=== PATIENT | male | born 1960 | race Caucasian/White ===

== ENCOUNTER 2019-02-10 14:07 | Inpatient (IN) | payer BC ==
[~2019-02-10] VITALS: Ht 185.4 cm; Wt 106.6 kg
[2019-02-10 15:06] VITALS: BP 146/86
[2019-02-10] MEDS ORDERED: CRESTOR5 MG PO (15:19)
[2019-02-10] MEDS ORDERED: MEDROL DOSE PACK4 MG PO (15:20)
[2019-02-10] MEDS ORDERED: PREVACID30 MG PO (15:20)
[2019-02-10] MEDS ORDERED: NORVASC5 MG PO (15:20)
[2019-02-10] MEDS ORDERED: ASPIRIN EC81 M1 PO (15:20)
[2019-02-10] MEDS ORDERED: ULTRAM50 MG PO (15:21)
[2019-02-10] MEDS ORDERED: LIORESAL 10 MG10 MG PO (15:21)
[2019-02-10 15:25] LABS: HEMATOCRIT 47.1 % (42.0-54.0); HEMOGLOBIN 16.6 g/dL (13.5-17.5); LYMPHOCYTES 7.2 % (15-50); MCH 30.6 pg (26.0-34.0); MCHC 35.2 g/dL (31.0-37.0); MCV 86.9 fL (80.0-100.0); MEAN PLATELET VOLUME 8.9 fL (7.4-10.4); NEUTROPHILS 82.5 % (40-80); PLATELET COUNT 292 10x3/uL (130-400); RBC 5.42 10x6/uL (4.20-6.10); RDW 12.5 % (11.5-14.5); WBC 17.9 10x3/uL (4.8-10.8)
[2019-02-10 15:38] LABS: APPEARANCE CLEAR (CLEAR); BILIRUBIN NEGATIVE (NEGATIVE); COLOR YELLOW (YELLOW); GLUCOSE NEGATIVE (NEGATIVE); KETONE NEGATIVE (NEGATIVE); NITRITE NEGATIVE (NEGATIVE); PROTEIN NEGATIVE (NEGATIVE); SPECIFIC GRAVITY 1.015 (1.005-1.020); UROBILINOGEN NORMAL (NORMAL)
[2019-02-10 15:40] LABS: ALBUMIN 3.7 g/dL (3.4-5.0); ANION GAP 11.7 mmol/L (8-16); BILIRUBIN - TOTAL 0.43 mg/dL (0.2-1.3); CALCIUM 8.3 mg/dL (8.5-10.1); CARBON DIOXIDE 30.2 mmol/L (21.0-32.0); CREATININE - SERUM 1.3 mg/dL (0.6-1.3); POTASSIUM - SERUM 3.9 mmol/L (3.5-5.1); PROTEIN - SERUM 7.1 g/dL (6.4-8.2)
[2019-02-10 15:45] LABS: UDS - AMPHET NEGATIVE QUAL (NEGATIVE); UDS - BARB NEGATIVE QUAL (NEGATIVE); UDS - BENZO NEGATIVE QUAL (NEGATIVE); UDS - COCAINE NEGATIVE QUAL (NEGATIVE); UDS - OPIATE NEGATIVE QUAL (NEGATIVE); UDS - PCP NEGATIVE QUAL (NEGATIVE); UDS - THC NEGATIVE QUAL (NEGATIVE)
[2019-02-10 15:49] LABS: CREATINE KINASE 185 UL (21-232); TROPONIN-I < 0.017 ng/mL (0.000-0.060)
--- NOTE | 2019-02-10 19:21 | NUR ---
PT REQUESTING THAT PATIENT BE GIVEN PREVACID 30MG WHICH IS HOME MEDS.
--- NOTE | 2019-02-10 20:35 | NUR ---
RECEIVED PT TO FLOOR. PT AT BEDSIDE. PT STATES THAT HE IS HAVING HEART BURN. SPOKE WITH PT ABOUT PROTONIX THAT WAS GIVEN IN ER AND PT STATES THAT HE HAS HAD NO RELIEF. STATES THAT SHE GAVE PT A CARAFATE. THIS NURSE ASKED IF SHE GAVE TO PT WHILE ON FLOOR AND SHE STATED YES BECAUSE HE IS HURTING. PT GOES ON TO EXPLAIN THAT SHE IS A PHARMACIST FOR THE HOSPITAL IN [place]. PT AND PT ASKED SEVERAL TIMES TO MIX UP A "GI COCKTAIL". EXPLAINED TO PT THAT HE HAS HAD PROTONIX AND CARAFATE--THAT WAS NOT ORDERED BY DOCTOR. DOCTOR WOULD NOT APPRECIATE PT MEDICATING PT REPORTED TO THIS NURSE AND THAT IS NOT OKAY. WHEN ASKED THE IF SHE HAD ANYMORE MEDS AND IF THIS NURSE NEEDED TO TAKE THEM TO PHARMACY SHE REPLIED NO SHE JUST HAD ONE CARAFATE IN HER PURSE. 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 CALLED PHARMACY ABOUT ROBAXIN. PT AND DEMANDING AT TIMES. PLEASENT BUT VERY DEMANDING.
--- NOTE | 2019-02-10 23:14 | NUR ---
PT STATES MORPHINE MAKES HIM "FEEL FUNNY" BUT PAIN IS TOLERABLE. ASKED IF INDIGESTION HAD EASED AND PT STATED IT WAS "NUMB" NOW AND PROCEEDED TO TELL THIS NURSE THAT HIS GAVE HIM ANOTHER CARAFATE. ONCE AGAIN TOLD NURSE THAT SHE DID NOT NEED TO MEDICATE PT WITHOUT ORDERS REGARDLESS OF OCCUPATION OR BACKGROUND. PT DID NOT LOOK PLEASED. ASKED PT IF SHE WANTED TO CONTACT NURSE CHARGE RN SO WE COULD FIND A MORE APPROPRIATE COURSE OF ACTION. PT AND PT DENIED. CHARGE NURSE WAS NOTIFIED ABOUT SERIES OF EVENTS THROUGH OUT THE EVENING.
[2019-02-10 23:18] VITALS: BP 155/89; BMI 31.0
[2019-02-10 23:47] VITALS: BP 126/73
--- NOTE | 2019-02-11 07:30 | NUR ---
PT AAOX4 RESP EVEN AND NONLABORED, NO SIGNS OF DISTRESS NOTED, PT STATES "NOTHING IS HELPING MY PAIN AND I JUST WANT TO BE LEFT ALONE" I EXPRESSED TO THE PT THAT I WAS SORRY FOR HIS PAIN AND THAT I WOULD CONTACT THE DR AND SEE IF THERE WAS ANYTHING ELSE THEY COULD DO FOR HIM, FAMILY AT BEDSIDE CL IN REACH
[2019-02-11 08:44] VITALS: BP 107/65
[2019-02-11 09:41] LABS: BASOPHILS 0.1 % (0-2); EOSINOPHILS 0.4 % (0-7); HEMATOCRIT 51.3 % (42.0-54.0); HEMOGLOBIN 17.9 g/dL (13.5-17.5); IMMATURE GRANULOCYTES 2.2 % (0-5); LYMPHOCYTES 22.5 % (15-50); MCH 31.1 pg (26.0-34.0); MCHC 34.9 g/dL (31.0-37.0); MEAN PLATELET VOLUME 9.5 fL (7.4-10.4); MONOCYTES 12.3 % (2-11); NEUTROPHILS 62.5 % (40-80); PLATELET COUNT 281 10x3/uL (130-400); RBC 5.76 10x6/uL (4.20-6.10); RDW 12.6 % (11.5-14.5)
[2019-02-11 09:42] LABS: MCV 89.1 fL (80.0-100.0); WBC 11.6 10x3/uL (4.8-10.8)
[2019-02-11 09:49] LABS: CALCIUM 8.6 mg/dL (8.5-10.1); CARBON DIOXIDE 31.3 mmol/L (21.0-32.0); CREATININE - SERUM 1.3 mg/dL (0.6-1.3); POTASSIUM - SERUM 4.3 mmol/L (3.5-5.1)
[2019-02-11 09:56] LABS: INR 1.01 (0.85-1.17); PROTIME 12.8 SECONDS (11.6-15.0)
--- NOTE | 2019-02-11 12:00 | NUR ---
PT GONE FOR SURGERY AT THIS TIME
--- NOTE | 2019-02-11 12:22 | NUR ---
POSITIONED ON BACK FRAME ALL AREAS PADDED SECURED WITH NO IMPINGEMENTS, GENITALS CHECKED AND FREE WITH NO IMPINGEMENTS, JULIANNA.
[2019-02-11 13:55] VITALS: BP 136/88
[2019-02-11 14:07] VITALS: Ht 185.4 cm; Wt 106.6 kg
--- NOTE | 2019-02-11 14:15 | NUR ---
BLADDER SCAN DONE WITH 625CC RESULT , F/C PLACED PER ORDERS WITH 600CC OUTPUT AT THIS TIME, PT EXPRESSED HE FEELS A RELIEF IN BLADDER, TOLERATED WITHOUT C/O
[2019-02-11 17:14] VITALS: BP 127/82
[2019-02-11 19:41] VITALS: BP 118/84
--- NOTE | 2019-02-11 20:00 | NUR ---
GOLDY CASANOVA CALLED TO ORDER A GI COCKTAIL AND TO STOP THE STEROIDS
[2019-02-12 00:02] VITALS: BP 122/72
--- NOTE | 2019-02-12 03:50 | NUR ---
I have reviewed this patient and I concur with the Shift Assessment completed by the Licensed Practical Nurse today this shift.
[2019-02-12 04:00] VITALS: BP 145/56
--- NOTE | 2019-02-12 04:30 | NUR ---
PT COMPLAINING OF NERVE TINGLING IN LEG BEFORE SURGERY, TRAMADOL AND ROBAXIN GIVEN, EXPLAINED TO PT THAT THE STEROIDS ORDERED WOULD'VE HELPED DECREASE INFLAMMATION
[2019-02-12 06:13] LABS: ANION GAP 11.3 mmol/L (8-16); CALCIUM 8.3 mg/dL (8.5-10.1); CARBON DIOXIDE 28.1 mmol/L (21.0-32.0); CREATININE - SERUM 1.3 mg/dL (0.6-1.3); POTASSIUM - SERUM 4.4 mmol/L (3.5-5.1)
[2019-02-12 07:34] LABS: BASOPHILS 0.1 % (0-2); EOSINOPHILS 0 % (0-7); HEMATOCRIT 48.4 % (42.0-54.0); HEMOGLOBIN 16.6 g/dL (13.5-17.5); IMMATURE GRANULOCYTES 1.3 % (0-5); LYMPHOCYTES 5.5 % (15-50); MCH 30.9 pg (26.0-34.0); MCHC 34.3 g/dL (31.0-37.0); MEAN PLATELET VOLUME 9.7 fL (7.4-10.4); MONOCYTES 7.8 % (2-11); NEUTROPHILS 85.3 % (40-80); PLATELET COUNT 290 10x3/uL (130-400); RBC 5.38 10x6/uL (4.20-6.10); RDW 12.4 % (11.5-14.5)
[2019-02-12 07:36] LABS: WBC 16.6 10x3/uL (4.8-10.8)
[2019-02-12 08:44] VITALS: BP 130/81
--- NOTE | 2019-02-12 11:00 | NUR ---
F/C OUT PER ORDERS WITH 800CC OUTPUT AT THIS TIME TOLATRED WITHOUT C/O CL IN REACH
--- NOTE | 2019-02-12 13:00 | NUR ---
450CC OUTPUT AT FROM URINAL AT THIS TIME
[2019-02-12 13:21] VITALS: BP 125/81
--- NOTE | 2019-02-12 13:25 | NUR ---
PT AMBULATING THE HALLS AT THIS TIME WITH ME AND AT SIDE, PT IN STABLE CONDITION AT THIS TIME AND TOLERATING WITHOUT COMPLAINT
[2019-02-12] MEDS ORDERED: ULTRAM50 MG PO (14:09)
[2019-02-12] MEDS ORDERED: ZOFRAN4 MG PO (14:10)
[2019-02-12] MEDS ORDERED: GABAPENTIN100 MG PO (14:10)
[2019-02-12] MEDS ORDERED: ROBAXIN500 MG PO (14:11)
--- NOTE | 2019-02-12 15:24 | NUR ---
BLADDER SCAN DONE WITH 14CC RESIDUAL AT THIS TIME
--- NOTE | 2019-02-12 15:30 | NUR ---
IV DC WITH CATH INTACT, DC INSTRUCTIONS GIVEN PT VERBALIZES UNDERSTANDING AT BEDSIDE, PRESCPTION GIVEN TO FOR ULTRAM, LEAVING VIA WHEELCHAIR VIA HOSPTIAL STAFF VIA PRIVATE VECHILE IN STABLE CONDITION
== END 2019-02-12 15:38 | disposition home or self-care (01) | DRG 520 ==
LOC: D.ER 14:07 → D.EDHOLD 19:50 → D.MS 20:04
PROVIDERS: Family Medicine; Neurological Surgery; ADMIT Internal Medicine Nephrology; ATTEND Internal Medicine Nephrology
PROC: 01NB0ZZ Release Lumbar Nerve, Open Approach (ICD-10-PCS; 2019-02-11)
PROC: 0ST20ZZ Resection of Lumbar Vertebral Disc, Open Approach (ICD-10-PCS; principal; 2019-02-11 10:10)
DX: M51.17 Intervertebral disc disorders with radiculopathy, lumbosacral region (principal); M99.53 Intervertebral disc stenosis of neural canal of lumbar region; M54.30 Sciatica, unspecified side; R20.1 Hypoesthesia of skin; R20.8 Other disturbances of skin sensation; R20.2 Paresthesia of skin; M53.3 Sacrococcygeal disorders, not elsewhere classified